=== PATIENT | female | born 1985 | race African-American/Black ===

== ENCOUNTER 2018-07-08 10:09 | Observation (INO) | payer MEDICAID ==
[~2018-07-08] VITALS: Ht 162.6 cm; Wt 67.1 kg
[2018-07-08] MEDS ORDERED: LACTATED RINGERS 1,000 ML IV SCH (11:30)
[2018-07-08] MEDS ORDERED: ACETAMINOPHEN 500MG TABLET PO ONE (13:00)
[2018-07-08] MEDS ORDERED: PNV11TAB5 PO (13:17)
== END 2018-07-08 13:34 | disposition home or self-care (01) ==
LOC: L&D 10:09
PROVIDERS: ADMIT Obstetrics & Gynecology; ATTEND Obstetrics & Gynecology
DX: O62.9 Abnormality of forces of labor, unspecified (principal); Z3A.37 37 weeks gestation of pregnancy
CPT/HCPCS: 99281; G0378; 96360; 96361